=== PATIENT | female | born 1965 | race Caucasian/White ===

== ENCOUNTER 2021-06-14 20:38 | Emergency (ER) | payer OTHER, BC ==
[2021-06-14] MEDS ORDERED: Ibuprofen 800 MG TAB ONE (21:13)
[2021-06-14] MEDS ORDERED: Lidocaine 1%/Epinephrine 1:100K 10 ML VIAL ONE (21:26)
[2021-06-14] MEDS ORDERED: HYDROcodone/Acetaminophen 5/325 mg Tablet ONE (22:02)
[2021-06-14] MEDS ORDERED: Boostrix 0.5 ML (Tdap) VIAL ONE (22:31)
[2021-06-14] MEDS ORDERED: Triple Antibiotic Oint 1 GM Packet ONE (22:59)
[2021-06-14] MEDS ORDERED: metroNIDAZOLE 250 MG TAB ONE (23:19)
[2021-06-14] MEDS ORDERED: Doxycycline 100 MG CAP ONE (23:19)
== END 2021-06-14 23:30 | disposition home or self-care (01) ==
LOC: MADERS 20:38
DX: S51.812A Laceration without foreign body of left forearm, initial encounter (principal); S51.811A Laceration without foreign body of right forearm, initial encounter; I10 Essential (primary) hypertension; E78.5 Hyperlipidemia, unspecified; W54.0XXA Bitten by dog, initial encounter; Z23 Encounter for immunization; Z79.899 Other long term (current) drug therapy
CPT/HCPCS: 12004; 90471; 90715

== ENCOUNTER 2023-10-01 15:36 | Emergency (ER) | payer BC ==
[2023-10-01] MEDS ORDERED: Lidocaine 1% w/Epinephrine 1:100K 20 ML VIAL ONE (15:56)
[2023-10-01] MEDS ORDERED: Bacitracin 1 PK ONE (16:36)
== END 2023-10-01 16:45 | disposition home or self-care (01) ==
LOC: MADERS 15:36
DX: S70.351A Superficial foreign body, right thigh, initial encounter (principal); I10 Essential (primary) hypertension; E11.9 Type 2 diabetes mellitus without complications; E78.5 Hyperlipidemia, unspecified; W45.8XXA Other foreign body or object entering through skin, initial encounter
CPT/HCPCS: 10120